=== PATIENT | male | born 1960 | race Caucasian/White ===

== ENCOUNTER 2017-06-07 08:10 | Emergency (ER) | payer OTHER ==
[~2017-06-07] VITALS: Ht 177.8 cm; Wt 66.7 kg
== END 2017-06-07 10:26 | disposition designated cancer center or children's hospital (05) ==
LOC: ER 08:10 → CPU-OBS 08:25 → ER 10:26
DX: I21.3 ST elevation (STEMI) myocardial infarction of unspecified site (principal); R07.89 Other chest pain
CPT/HCPCS: 93005; G0378; G0379